=== PATIENT | female | born 1995 | race Caucasian/White ===

== ENCOUNTER 2017-10-13 09:45 | Outpatient (CLI) | payer OTHER ==
--- NOTE | 2017-10-13 16:43 | ULT ---
PELVIS ULTRASOUND WITH ENDOVAGINAL IMAGES: 10/13/2017 HISTORY: Ultrasonography of the pelvis was performed initially with the abdominal probe and then subsequently with the endovaginal probe, to better see the adnexal regions. FINDINGS: The uterus measures 6.4 x 3.5 x 3.9 cm. The endometrium is a normal 8 mm thick. There is no gestati onal sac visible within it, even on the endovaginal images. The right ovary is 3.4 cm long. There is a 1.9 cm cyst within it that may have a small amount of hamida ris, but is mainly cystic. Separate from it, however, is a 0.6 to 0.7 cm, rounded, hypoechoic area t hat has an intense surrounding vascularity (ring of fire) appearance. In the proper clinical c ontext, an ectopic could look this way. The left ovary is 1.7 cm long, has vascular flow within it, and appears normal. There is no substantial free fluid in the cul-de-sac. IMPRESSION: 1. No gestational sac seen in the uterus itself. 2. Right ovarian cyst, not present to this degree on the prior ultrasound of 07/26/2017, done at [facility] in [place]. 3. Separate from the cyst in the right ovary is a hypoechoic/semi-cystic area with a ring of fire appearance of the vascularity around it. Given a positive hCG, the possibility of ectopic pregna ncy is raised. Gynecological referral needed. Findings discussed with Shahrzad Rehman at 1251 on 10/13/2017. CODE CR POS: [id number]
== END 2017-10-13 09:46 | disposition home or self-care (01) ==
LOC: BURULT 09:45
PROVIDERS: ATTEND Physician Assistant
DX: E34.9 Endocrine disorder, unspecified (principal); N83.201 Unspecified ovarian cyst, right side
CPT/HCPCS: 76856

== ENCOUNTER 2022-03-29 22:30 | Emergency (ER) | payer OTHER, SELFPAY ==
[2022-03-29 23:07] LABS: #Basophils 0.1 thou/uL (0.0-0.2); #Eosinphils 0.1 thou/uL (0.0-0.7); #Lymphocytes 1.9 thou/uL (1.20-3.40); #Monocytes 0.5 thou/uL (0.11-0.59); #Neutrophils 3.8 thou/uL (1.40-6.50); %Basophils 0.9 % (0.0-1.0); %Eosinophils 1.6 % (0.0-10.0); %Lymphocytes 29.2 % (21.0-51.0); %Monocytes 7.7 % (0.0-10.0); %Neutrophils 60.6 % (42.0-75.0); Mean Corpuscular HGB CONC 33.5 g/dL (32.0-36.0); Mean Corpuscular Hemoglobin 30.7 pg (27.0-31.0); Mean Corpuscular Volume 91.6 fl (78.0-98.0); Mean Platelet Volume 9.1 fL (7.4-10.4); Platelet Count 187 thou/uL (130-400); RBC Distribution Width 11.7 % (11.5-14.5); Red Blood Cell (RBC) Count 3.92 mill/uL (4.20-5.40); White Blood Cell (WBC) Count 6.3 thou/uL (4.8-10.8)
[2022-03-29] MEDS ORDERED: Ondansetron PF 4 MG/2 ML Vial ONE (23:09)
[2022-03-29 23:24] LABS: ALT (SGPT) 18 U/L (8-55); AST (SGOT) 18 U/L (5-34); Alkaline Phosphatase 40 U/L (40-110); Anion Gap 15 mmol/L (10-20); BUN (Urea Nitrogen) 9 mg/dL (7.0-18.7); Bilirubin, Total 0.3 mg/dL (0.2-1.2); Calc. Creatinine Clearance 0 mL/min (70-130); Calcium 7.9 mg/dL (7.8-10.44); Carbon Dioxide 20 mmol/L (22-29); Chloride 112 mmol/L (98-107); Estimated GFR 113; Globulin 2.3 g/dL (2.4-3.5); Glucose 124 mg/dL (70-105); Potassium 3.7 mmol/L (3.5-5.1); Protein, Total 6.3 g/dL (6.0-8.3); Sodium 143 mmol/L (136-145)
[2022-03-29 23:25] LABS: Acetaminophen Less than 10.0 mcg/mL (10.0-30.0); Alcohol 124 mg/dL (Less than 10); Salicylate Less than 8.0 mg/dL (15.0-30.0)
[2022-03-30 00:16] LABS: Pregnancy Test - Urine (BHCG) Negative (Negative)
[2022-03-30 00:17] LABS: Pregu Control Background? CLEAR/WHITE (CLR/WHITE); Pregu Control Bar Appear? YES (CONTROL BAR); Specific Gravity 1.006 (1.002-1.036)
[2022-03-30 00:25] LABS: Amphetamine Not Detected (NotDetected); Barbiturates Screen Not Detected (NotDetected); Benzodiazepine Screen Not Detected (NotDetected); Cocaine Metabolite Screen Not Detected (NotDetected); Medtox Control Line Valid? VALID (VALID); Methadone Not Detected (NotDetected); Methamphetamine Not Detected (NotDetected); Opiate Screen Not Detected (NotDetected); Oxycodone Screen Not Detected (NotDetected); Phencyclidine (PCP) Not Detected (NotDetected); THC/Cannabinoid Screen Detected (NotDetected); Tricyclic Screen Not Detected (NotDetected)
== END 2022-03-30 01:08 | disposition home or self-care (01) ==
LOC: BURERS 22:30
DX: F10.129 Alcohol abuse with intoxication, unspecified (principal)
CPT/HCPCS: 36415; 80053; 80306; 80307; 81025; 85025; 93005; 96361; 96374; J2405

== ENCOUNTER 2022-12-05 18:14 | Emergency (ER) | payer SELFPAY ==
[2022-12-05 18:52] LABS: #Basophils 0.1 thou/uL (0.0-0.2); #Eosinphils 0.3 thou/uL (0.0-0.7); #Lymphocytes 2.3 thou/uL (1.20-3.40); #Monocytes 0.7 thou/uL (0.11-0.59); #Neutrophils 3.4 thou/uL (1.40-6.50); %Basophils 0.9 % (0.0-1.0); %Eosinophils 4.8 % (0.0-10.0); %Lymphocytes 33.4 % (21.0-51.0); %Monocytes 10.7 % (0.0-10.0); %Neutrophils 50.2 % (42.0-75.0); Hemoglobin 13.7 g/dL (12.0-16.0); Mean Corpuscular HGB CONC 33.9 g/dL (32.0-36.0); Mean Corpuscular Hemoglobin 30.4 pg (27.0-31.0); Mean Corpuscular Volume 89.7 fl (78.0-98.0); Mean Platelet Volume 7.8 fL (7.4-10.4); Platelet Count 207 10x3/uL (130-400); RBC Distribution Width 10.9 % (11.5-14.5); Red Blood Cell (RBC) Count 4.49 mill/uL (4.20-5.40); White Blood Cell (WBC) Count 6.8 10x3/uL (4.8-10.8)
[2022-12-05 18:54] LABS: Bilirubin Negative (Negative); Blood, Urine Trace (Negative); Clarity Clear (Clear); Glucose, Urine (Dipstick) Negative (Negative); Ketone, Urine Negative (Negative); Leukocyte Trace (Negative); Nitrite Negative (Negative); Protein, Urine (Dipstick) Negative (Neg-Trace); Urobilinogen 0.2 mg/dL (Less than 2); pH, Urine 5.5 (5.0-9.0)
[2022-12-05 18:59] LABS: Bacteria/HPF 1+ HPF (None Seen); CAUTI Indications for Culture Pregnancy; RBC/HPF None Seen HPF (0-3); Specific Gravity, Urine 1.029 (1.002-1.036); Squamous Epithelial 0-3 HPF (0-3); WBC/HPF 0-3 HPF (0-3)
[2022-12-05 19:00] LABS: Urine Culture Reflex Yes Yes
== END 2022-12-05 18:55 | disposition home or self-care (01) ==
LOC: BURERS 18:14
DX: O20.0 Threatened abortion (principal); Z3A.01 Less than 8 weeks gestation of pregnancy
CPT/HCPCS: 36415; 81001; 84702; 85025; 87086; 99284